=== PATIENT | male | born 1965 | race Caucasian/White ===

== ENCOUNTER → 2017-04-27 | Outpatient (CLI) | payer OTHER ==
[~2017-04-27] MED LIST: BACTRIM DS 8001 TAB PO; BYETTA; DILAUDID 2MG TAB2 MG PO; EC NAPROSYN375 MG; GLUCOPHAGE1000 MG PO; GLYBURIDE5 MG PO; LANTUS100 U/ML; LEVOXYL0.1 MG; LISINOPRIL10 MG PO; LOPRESSOR 225 MG/TAB; METFORMIN1000 MG PO; PREVACID 15MG15 M1 PO; PRILOTC; TYLENOL 325MG325 MG PO; ULTRAM 50MG TAB50 MG; VITAMIN D31000 IU
== END ==
LOC: MHCPAIN 09:00
DX: G89.29 Other chronic pain (principal); M47.27 Other spondylosis with radiculopathy, lumbosacral region; M53.3 Sacrococcygeal disorders, not elsewhere classified
CPT/HCPCS: G0463

== ENCOUNTER → 2017-05-27 | Outpatient (CLI) | payer OTHER | LOC: MHCPAIN 08:13 | DX: M47.817 Spondylosis without myelopathy or radiculopathy, lumbosacral region (principal); M51.26 Other intervertebral disc displacement, lumbar region | CPT/HCPCS: J1100; Q9967 ==

== ENCOUNTER → 2017-06-09 | Outpatient (CLI) | payer OTHER | LOC: MHCPAIN 08:05 | DX: G89.29 Other chronic pain (principal); M47.817 Spondylosis without myelopathy or radiculopathy, lumbosacral region; M53.3 Sacrococcygeal disorders, not elsewhere classified | CPT/HCPCS: G0463 ==

== ENCOUNTER → 2017-06-23 | Outpatient (CLI) | payer OTHER | LOC: MHCPAIN 14:44 | DX: M47.817 Spondylosis without myelopathy or radiculopathy, lumbosacral region (principal); M53.3 Sacrococcygeal disorders, not elsewhere classified | CPT/HCPCS: J1100; J2250; J3010 ==

== ENCOUNTER → 2017-08-10 | Outpatient (CLI) | payer OTHER | LOC: MHCPAIN 07:56 | DX: G89.29 Other chronic pain (principal); M47.817 Spondylosis without myelopathy or radiculopathy, lumbosacral region; M53.3 Sacrococcygeal disorders, not elsewhere classified | CPT/HCPCS: G0463 ==

== ENCOUNTER → 2017-09-27 | Outpatient (CLI) | payer OTHER | LOC: COL.PUL 07:58 | DX: R06.09 Other forms of dyspnea (principal) ==

== ENCOUNTER → 2019-04-11 | Outpatient (CLI) | payer OTHER | LOC: MHCPAIN 08:08 | DX: M47.817 Spondylosis without myelopathy or radiculopathy, lumbosacral region (principal); M53.3 Sacrococcygeal disorders, not elsewhere classified | CPT/HCPCS: G0463 ==

== ENCOUNTER → 2019-04-13 | Outpatient (CLI) | payer OTHER | LOC: MHCPAIN 13:14 | DX: M53.3 Sacrococcygeal disorders, not elsewhere classified (principal) | CPT/HCPCS: G0260 ==

== ENCOUNTER → 2019-04-26 | Outpatient (CLI) | payer OTHER | LOC: MHCPAIN 08:02 | DX: M47.817 Spondylosis without myelopathy or radiculopathy, lumbosacral region (principal); M53.3 Sacrococcygeal disorders, not elsewhere classified | CPT/HCPCS: G0463 ==

== ENCOUNTER → 2019-05-11 | Outpatient (CLI) | payer OTHER | LOC: MHCPAIN 15:23 | DX: M54.2 Cervicalgia (principal) ==

== ENCOUNTER → 2019-05-25 | Outpatient (CLI) | payer OTHER | LOC: MHCPAIN 13:02 | DX: M47.22 Other spondylosis with radiculopathy, cervical region (principal) ==

== ENCOUNTER → 2019-08-24 | Outpatient (CLI) | payer OTHER | LOC: MHCPAIN 14:55 | DX: M47.812 Spondylosis without myelopathy or radiculopathy, cervical region (principal); M54.2 Cervicalgia; G89.29 Other chronic pain | CPT/HCPCS: G0463; J2250; J3010 ==

== ENCOUNTER → 2019-10-24 | Outpatient (CLI) | payer OTHER | LOC: MHCPAIN 16:05 | DX: M47.812 Spondylosis without myelopathy or radiculopathy, cervical region (principal); M54.2 Cervicalgia; G89.29 Other chronic pain; M54.6 Pain in thoracic spine | CPT/HCPCS: G0463 ==

== ENCOUNTER → 2019-11-01 | Outpatient (CLI) | payer OTHER | LOC: MHCPAIN 15:39 | DX: M47.812 Spondylosis without myelopathy or radiculopathy, cervical region (principal); M79.18 Myalgia, other site; M54.2 Cervicalgia | CPT/HCPCS: J1040 ==

== ENCOUNTER → 2021-03-06 | Outpatient (CLI) | payer OTHER ==
[~2021-03-06] VITALS: Ht 175.3 cm; Wt 117.3 kg
[~2021-03-06] MED LIST changes: +CRESTOR20 MG PO; -LANTUS100 U/ML; +LANTUS100 U/ML SQ; +LEVOXYL0.1 MG PO; +NEURONTIN300 MG/CAP PO; +OZEMPIC1 MG/0.75 SQ; -PRILOTC; +PRILOTC PO; +PRINIVIL20 MG PO; +TOPROL XL 25MG25 MG PO; +TOUJEO300 U/ML SQ
[2021-03-06 09:20] VITALS: BP 152/88; PULSE 89; TEMP 98
[2021-03-06 10:05] VITALS: BP 137/80; PULSE 102
[2021-03-06 10:15] VITALS: BP 128/79; PULSE 95
[2021-03-06 10:30] VITALS: BP 136/81; PULSE 90
== END ==
LOC: COL.RAD 08:43
DX: M48.02 Spinal stenosis, cervical region (principal)
CPT/HCPCS: J2250; J2704

== ENCOUNTER → 2021-10-27 | Outpatient (CLI) | payer OTHER | LOC: COL.RAD 13:59 | DX: M46.1 Sacroiliitis, not elsewhere classified (principal) | CPT/HCPCS: G0260; J3301 ==

== ENCOUNTER → 2021-11-27 | Outpatient (CLI) | payer OTHER | LOC: COL.RAD 14:19 | DX: M46.1 Sacroiliitis, not elsewhere classified (principal) ==

== ENCOUNTER 2023-01-23 13:21 | Emergency (ER) | payer OTHER ==
[~2023-01-23] VITALS: Ht 188 cm; Wt 109.1 kg
[2023-01-23 14:34] LABS: BASO % 0.4 % (0.0-2.0); EOS # 0.3 K/mm3 (0.0-0.7); EOS % 2.8 % (0.0-4.0); GRAN # 7.4 K/mm3 (1.4-6.5); GRAN % 80.1 % (42.2-75.2); HEMOGLOBIN 17.5 g/dl (13.5-18.0); LYMPH # 0.8 K/mm3 (1.2-3.4); LYMPH % 8.9 % (20.0-51.0); MEAN CELL VOLUME 83 fl (80.0-100.0); MEAN CORPUSCULAR HEMOGLOBIN 28 pg (27-31); MEAN CORPUSCULAR HGB CONC 34 g/dl (33.0-37.0); MEAN PLATELET VOLUME 9.9 fl (7.4-10.4); MONO # 0.6 K/mm3 (0.1-0.6); MONO % 6.7 % (1.7-9.3); PLATELET COUNT 151 K/mm3 (130-400); RED BLOOD COUNT 6.28 M/mm3 (4.20-5.60); REDCELL DISTRIBUTION WIDTH-CV 13.7 % (11.5-14.5)
[2023-01-23 14:49] LABS: ALBUMIN 3.7 gm/dL (3.5-5.0); BILIRUBIN,TOTAL 0.8 mg/dL (0.2-1.2); CALCIUM 9.3 mg/dL (8.4-10.2); CREATININE, serum 0.96 mg/dL (0.72-1.25); TOTAL PROTEIN 7.5 gm/dL (6.2-8.1)
[2023-01-23] MEDS ORDERED: ZOFRAN ODT4 MG PO ×2 (15:08)
[2023-01-23] MEDS ORDERED: FLEXERIL 1010 MG/TAB PO ×3 (15:09→15:32)
[2023-01-23] MEDS ORDERED: NORCO 325 MG-51 TAB PO (15:32)
[2023-01-23 18:56] VITALS: BP 108/69; PULSE 75; TEMP 98
== END 2023-01-23 19:11 | disposition home or self-care (01) ==
LOC: COL.ER 13:21
PROVIDERS: Emergency Medicine
DX: M54.50 Low back pain, unspecified (principal); M54.2 Cervicalgia; W11.XXXA Fall on and from ladder, initial encounter; W22.8XXA Striking against or struck by other objects, initial encounter
CPT/HCPCS: J1170; J2270; J2405; Q9967

== ENCOUNTER 2023-11-30 08:30 | Outpatient (RCR) | payer OTHER | END 2023-12-04 | disposition home or self-care (01) | LOC: WSST | DX: R13.12 Dysphagia, oropharyngeal phase (principal) ==

== ENCOUNTER → 2023-11-30 | Outpatient (CLI) | payer OTHER ==
[~2023-11-30] MED LIST changes: +FLEXERIL 1010 MG/TAB PO; +NORCO 325 MG-51 TAB PO; +ZOFRAN ODT4 MG PO
== END | disposition home or self-care (01) ==
LOC: COL.RAD 08:28
DX: R31.9 Hematuria, unspecified (principal)

== ENCOUNTER 2023-12-22 11:13 | Outpatient (RCR) | payer OTHER | END 2024-01-03 | disposition home or self-care (01) | LOC: WSST | DX: R13.12 Dysphagia, oropharyngeal phase (principal) ==

== ENCOUNTER 2024-02-29 11:20 | Day surgery (SDC) | payer OTHER ==
[2024-02-29] VITALS (13 sets, daily range): BP systolic 105–141; BP diastolic 59–78; PULSE 66–72; TEMP 97.4–98.5
[~2024-02-29] VITALS: Ht 188 cm; Wt 109.0 kg
[~2024-02-29 11:20] MED LIST changes: +OZEMPIC1 MG/0.71 SQ; -OZEMPIC1 MG/0.75 SQ; +PRIL40 PO; -PRILOTC PO; -PRINIVIL20 MG PO; +PRINIVIL40 MG PO
[2024-02-29] MEDS ORDERED: 1/2 NS 1,000 ML IV SCH ×2 (11:45→15:30)
[2024-02-29] MEDS ORDERED: LEXAPRO 10MG10 MG PO (12:04)
[2024-02-29] MEDS ORDERED: JARDIANCE10 (12:04)
[2024-02-29] MEDS ORDERED: ASPIRIN 81M81 MG/TA2 PO (12:05)
[2024-02-29 12:15] LABS: PROTHROMBIN TIME 11.2 SECONDS (9.7-12.8)
[2024-02-29 12:16] LABS: CALCIUM 8.8 mg/dL (8.4-10.2); CREATININE, serum 1.19 mg/dL (0.72-1.25); POTASSIUM 4.3 mEq/L (3.5-4.5)
[2024-02-29 12:18] LABS: PARTIAL THROMBOPLASTIN TIME 20.2 SECONDS (26.0-37.0)
[2024-02-29 12:20] LABS: HEMATOCRIT 51.7 % (42.0-52.0); HEMOGLOBIN 16.8 g/dl (13.5-18.0); MEAN CELL VOLUME 81 fl (80.0-100.0); MEAN CORPUSCULAR HEMOGLOBIN 26 pg (27-31); MEAN CORPUSCULAR HGB CONC 33 g/dl (33.0-37.0); MEAN PLATELET VOLUME 10.6 fl (7.4-10.4); PLATELET COUNT 126 K/mm3 (130-400); RED BLOOD COUNT 6.41 M/mm3 (4.20-5.60); REDCELL DISTRIBUTION WIDTH-CV 15.8 % (11.5-14.5)
--- NOTE | 2024-02-29 14:11 | NUR ---
See Merge report for procedural sedation/notes
[2024-02-29] MEDS ORDERED: Heparin 1,000 UNITS/ML 10 ML Multi-Dose VIAL IV SCH (14:22)
[2024-02-29] MEDS ORDERED: Bivalirudin 250 MG in NS 50 ML IV SCH (14:30)
[2024-02-29] MEDS ORDERED: Nitroglycerin 100 MCG/ML (Cath Lab) 10 ML VIAL IA SCH (14:31)
[2024-02-29] MEDS ORDERED: Verapamil 2.5 MG/ML 2 ML VIAL IA SCH (14:31)
[2024-02-29] MEDS ORDERED: Ticagrelor 90 MG TAB PO SCH ×2 (14:38→21:00)
[2024-02-29] MEDS ORDERED: Midazolam 2 MG/2 ML VIAL IV SCH (14:40)
[2024-02-29] MEDS ORDERED: fentaNYL 50 MCG/ML 2 ML VIAL IV SCH (14:41)
[2024-02-29] MEDS ORDERED: Iohexol 350 - 100 ML VIAL INCOR ONE (14:48)
[2024-02-29] MEDS ORDERED: Bisacodyl 5 MG TAB PO PRN (15:15)
--- NOTE | 2024-02-29 15:29 | NUR ---
Patient arrived to the medical unit R317. Alert and oriented x 4, VSS. He is hungry and looking for food. Ice water provided. Post op started.
[2024-02-29] MEDS ORDERED: Magnes Hydrox (MOM) 80 MG/ML 30 ML CUP PO PRN (15:30)
[2024-02-29] MEDS ORDERED: Acetaminophen 325 MG TAB PO PRN (15:30)
[2024-02-29] MEDS ORDERED: Ondansetron 4 MG/2 ML VIAL IV PRN (15:30)
--- NOTE | 2024-02-29 15:30 | NUR ---
Pt to Medical 317: bedside handoff performed with IRMA Rincon. Vitals initiated and stable, rt radial TR band in place and stable, call light in reach, at bedside
[2024-02-29] MEDS ORDERED: KERENDIA10 MG PO (15:49)
--- NOTE | 2024-02-29 15:54 | NUR ---
Pt eating a sandwich now. Getting fluids per orders.
[2024-02-29] MEDS ORDERED: Dextrose 50% Water 25 GM/50 ML SYRINGE IV PRN (16:00)
[2024-02-29] MEDS ORDERED: Dextrose (Glucose) 15 GM (4 x 3.75 GM) Chewable TABLET PACK PO PRN (16:00)
[2024-02-29] MEDS ORDERED: Glucagon 1 MG VIAL IM PRN (16:00)
--- NOTE | 2024-02-29 18:37 | NUR ---
Radial compresion band removed, no bleeding. Bandaid placed. PT'S arriving. Vss, Continues getting fluids. Report will be given to night RN.
[2024-02-29] MEDS ORDERED: Gabapentin 300 MG CAP PO SCH (20:00)
[2024-02-29] MEDS ORDERED: Rosuvastatin 20 MG **** subs to Atorvastatin 40 MG PO SCH (21:00)
[2024-02-29] MEDS ORDERED: Atorvastatin 40 MG TAB PO SCH (21:00)
[2024-02-29] MEDS ORDERED: Insulin Glargine-ygfn (Lantus) SQ SCH (21:00)
[2024-02-29] MEDS ORDERED: Melatonin 3 MG TAB PO PRN (21:00)
[2024-02-29] MEDS ORDERED: Lisinopril 20 MG TAB PO SCH (21:00)
--- NOTE | 2024-02-29 21:00 | NUR ---
UPON SHIFT ASSESSMENT, VICTORIANO WAS AWAKE IN BED AND A&O X4. RT RADIAL SITE IS CDI WITH BANDAIDS, NO HEMATOMA PALPABLE, DISTAL PULSES AND COLOR GOOD. POST-OP VITALS HAVE BEEN WNL. PATIENT C/O 09/12 LT SHOULDER PAIN. PAIN DOES NOT RADIATE AND PATIENT STATES IT IS NOT CARDIAC RELATED, RATHER, " I TORE MY ROTATOR CUFF YEARS AGO." PRN TYLENOL GIVEN. ALL NEEDS MET AND CALL LIGHT WITHIN REACH.
--- NOTE | 2024-02-29 21:50 | NUR ---
CALL PLACED TO HOUSE INQUIRING ABOUT 92 UNITS OF LANTUS TO BE ADMINISTERED TO PATIENT THIS IS AN UNUSUAL AMOUNT. ADVISED TO REACH OUT TO NACHO-SWITCHBOARD AND CONTROL ROOM OPERATOR TO CONFIRM. MESSAGE LEFT WITH NACHO TALKED WITH PATIENT WHO STATED HE TAKES 92 UNITS OF TOUJEO BID. CALL PLACED TO PHARMACIST KALIA TO CONFIRM THAT LANTUS IS ACCEPTABLE GLARGINE TO TOUJEO. STATED IT WAS SAME FORMULATION. WITH PATIENT CONFIRMATION OF DOSE AND PHARMACIST VERIFICATION OF FORMULATION, 92 UNITS LANTUS ADMINISTERED PER ORDERS. SNACK LEFT BEDSIDE. PATIENT EDUCATION PROVIDED ON HYPOGLYCEMIA
--- NOTE | 2024-03-01 | NUR ---
PATIENT SLEEPING SOUNDLY WITH HOME CPAP ON. VS ARE STABLE AND BG RECHECK 137.
[2024-03-01 01:00] VITALS: BP_SYST 118
[2024-03-01 03:25] VITALS: BP 107/66; PULSE 63; TEMP 97.8
[2024-03-01 04:16] VITALS: BP_SYST 107
[2024-03-01 06:42] LABS: BASO % 0.7 % (0.0-2.0); EOS # 0.5 K/mm3 (0.0-0.7); EOS % 10.2 % (0.0-4.0); GRAN # 2.6 K/mm3 (1.4-6.5); GRAN % 57.4 % (42.2-75.2); HEMATOCRIT 45.9 % (42.0-52.0); HEMOGLOBIN 14.9 g/dl (13.5-18.0); LYMPH # 0.9 K/mm3 (1.2-3.4); LYMPH % 18.7 % (20.0-51.0); MEAN CELL VOLUME 81 fl (80.0-100.0); MEAN CORPUSCULAR HEMOGLOBIN 26 pg (27-31); MEAN CORPUSCULAR HGB CONC 33 g/dl (33.0-37.0); MEAN PLATELET VOLUME 10.6 fl (7.4-10.4); MONO # 0.6 K/mm3 (0.1-0.6); MONO % 12.6 % (1.7-9.3); PLATELET COUNT 118 K/mm3 (130-400); RED BLOOD COUNT 5.66 M/mm3 (4.20-5.60); REDCELL DISTRIBUTION WIDTH-CV 15.3 % (11.5-14.5)
[2024-03-01 06:55] LABS: CALCIUM 8.5 mg/dL (8.4-10.2); CREATININE, serum 0.88 mg/dL (0.72-1.25); POTASSIUM 3.7 mEq/L (3.5-4.5)
[2024-03-01] MEDS ORDERED: Omeprazole 20 MG **** subs to Pantoprazole 40 MG PO SCH (07:00)
[2024-03-01 07:32] VITALS: BP 134/85; PULSE 63; TEMP 97.7
[2024-03-01 08:00] VITALS: BP_SYST 134
[2024-03-01] MEDS ORDERED: Escitalopram 10 MG TAB PO SCH (09:00)
[2024-03-01] MEDS ORDERED: Empagliflozin 10 MG TAB PO SCH (09:00)
--- NOTE | 2024-03-01 09:20 | NUR ---
Pt. sitting up in bed. Pt. is A&OX3, assessment complete. INT to rt. ac patent. Rt. radial cath site cdi. Pt. denies pain or other needs, call light within reach.
--- NOTE | 2024-03-01 09:26 | NUR ---
Reviewed risk factors for heart disease. Covered applicable modifiable risk factors including the following: tobacco cessation, HTN, hyperlipidemia, diabetes, overweight/obesity, sedentary lifestyle, and stress/depression. Pt verbalized understanding and is interested in starting. Pt states he has [place] for medical coverage and will need to get authorization from them. Informed pt that we can help with this and will call him once we gather the [facility]'s authorization. Pt is going to start PT on his neck in March from a sx that took place in September. He will meet with PT once a week. This will work with CR schedule and will help pt achieve his usp goals. Pt verbalizes understanding.
[2024-03-01] MEDS ORDERED: BRILINTA90 MG PO (10:24)
--- NOTE | 2024-03-01 10:24 | NUR ---
Initial visit; Patient doing well and is a man from [facility] who moved his family here from [place]. Yoseph was receptive to prayer and seemed to appreciate the visit. He was thankful to for keeping dean in her prayers also.
--- NOTE | 2024-03-01 11:02 | NUR ---
Pt. very impatient about discharge and took out IV site on his own. Catheter intact. Reviewed discharge with the pt. and pt. escorted out.
--- NOTE | 2024-03-01 15:51 | NUR ---
Salon Sales Consultant unable to meet with patient prior to discharge. Patient observed by SW at the nurses station requesting discharge paperwork. RN advised patient took out his own IV and was anxious to leave. No unmet needs identified at this time. Discharge Plan: Home
== END 2024-03-01 11:00 | disposition home or self-care (01) ==
LOC: COL.CAR 11:20 → MEDICAL 11:20 → COL.CAR 11:30 → MEDICAL 15:26 → COL.CAR 03-01 11:00 → MEDICAL 03-01 11:00
PROVIDERS: Internal Medicine Cardiovascular Disease
DX: I25.10 Atherosclerotic heart disease of native coronary artery without angina pectoris (principal); I10 Essential (primary) hypertension; E78.00 Pure hypercholesterolemia, unspecified; Z95.5 Presence of coronary angioplasty implant and graft
CPT/HCPCS: OP; A9270; C1725; C1769; C1874; C1887; C9600; J0583; J1644; J1815; J2250; J3010; Q9967